=== PATIENT | male | born 1940 | race Caucasian/White ===

== ENCOUNTER 2017-04-13 16:43 | Inpatient (IN) | payer MEDICARE, OTHER ==
[~2017-04-13] VITALS: Ht 177.8 cm; Wt 77.1 kg
--- NOTE | 2017-04-13 17:00 | NUR ---
ms rn received a mew direct admission form [facility], dx etoh withdrawal, 76 year old male,awake,alert,oriented x3-4,not in any form of distress, respirations even and unlabored, no distress noted,denies pain at this time,all needs attended.
[2017-04-13] MEDS ORDERED: ONDANSETRON HCL/PF 4 MG/2 ML VIAL IVP PRN (17:30)
[2017-04-13] MEDS ORDERED: ACETAMINOPHEN 325 MG TABLET PO PRN (17:30)
[2017-04-13] MEDS ORDERED: CLONIDINE HCL 0.1 MG TABLET PO PRN (17:30)
[2017-04-13] MEDS ORDERED: Z GUARD REMEDY 2 OZ OINT TP PRN (17:30)
[2017-04-13] MEDS ORDERED: MAGNESIUM HYDROXIDE 30 ML UDC PO PRN (17:30)
[2017-04-13] MEDS ORDERED: ZOLPIDEM TARTRATE 5 MG TABLET PO PRN (17:30)
[2017-04-13] MEDS ORDERED: MAG HYDROX/AL HYDROX/SIMETH 30 ML UDC PO PRN (17:30)
--- NOTE | 2017-04-13 18:00 | NUR ---
ms rn due meds given,tolerated well.
[2017-04-13] MEDS: IV NS 0.9% 1,000 ML IV PRN (18:29)
[2017-04-13] MEDS: CHLORDIAZEPOXIDE HCL 5 MG CAPSULE PO SCH (18:29)
[2017-04-13 18:52] LABS: ALANINE AMINOTRANSFERASE 24 U/L (12-78); ALBUMIN 2.9 g/dL (3.4-5.0); ALKALINE PHOSPHATASE 99 U/L (46-116); ASPARTATE AMINOTRANSFERASE 22 U/L (15-37); BILIRUBIN,TOTAL 0.6 mg/dL (0.2-1.0); CALCIUM, SERUM 9.2 mg/dL (8.5-10.1); CARBON DIOXIDE 28 mmol/L (21-32); CHLORIDE 99 mmol/L (98-107); GLUCOSE 172 mg/dL (74-106); MAGNESIUM 1.8 mg/dL (1.8-2.4); PHOSPHORUS 3.6 mg/dL (2.5-4.9); POTASSIUM 4.3 mmol/L (3.5-5.1); SODIUM SERUM 135 mmol/L (136-145); TOTAL PROTEIN, SERUM 7.1 g/dL (6.4-8.2); UREA NITROGEN, BLOOD 27 mg/dL (7-18)
--- NOTE | 2017-04-13 19:08 | NUR ---
ms rn on bed no distress noted,all needs attended.
--- NOTE | 2017-04-13 19:20 | NUR ---
MS/RN NOTES RECEIVED PT. LYING IN BED. AWAKE, ALERT AND ORIENTED X3. BREATHING EVEN AND UNLABORED ON ROOM AIR. NO SOB, RESPIRATORY DISTRESS OR COMPLAINTS OF PAIN NOTED AT THIS TIME. PT. WITH RIGHT FOREARM PERIPHERAL IV PRESENT, PATENT AND INTACT ADMINISTERING TO PT. NS @ 75 ML/HR. BED LOCKED AND IN LOWEST POSITION, SIDE RAILS UP X3, CALL LIGHT WITHIN REACH, WILL CONTINUE TO MONITOR.
[2017-04-13 19:56] VITALS: BP 156/94
[2017-04-13 20:00] VITALS: BP 141/83
--- NOTE | 2017-04-14 06:21 | NUR ---
MS/RN NOTES PT. IS LYING IN BED RESTING. BREATHING EVEN AND UNLABORED ON ROOM AIR. NO SOB, RESPIRATORY DISTRESS OR COMPLAINTS OF PAIN NOTED AT THIS TIME AND THROUGHOUT SHIFT. PT. WITH RIGHT FOREARM PERIPHERAL IV PRESENT, PATENT AND INTACT ADMINISTERING TO PT. NS @ 75 ML/HR. ALL PT. NEEDS MET. PT. ENCOURAGED AND ASSISTED TO TURN AND REPOSITION Q2H AND NEEDED. BED LOCKED AND IN LOWEST POSITION, SIDE RAILS UP X3, CALL LIGHT WITHIN REACH, WILL ENDORSE TO DAYSHIFT NURSE FOR CONTINUITY OF CARE.
[2017-04-14 07:35] LABS: BASOPHILS % (AUTO) 0.3 % (0.0-2.0); EOSINOPHILS # (AUTO) 0.1 /CMM (0.0-0.7); EOSINOPHILS % (AUTO) 1.4 % (0.0-6.0); HEMATOCRIT 34 % (39-51); HEMOGLOBIN 11.9 g/dL (13.5-17.5); LYMPHOCYTES # (AUTO) 1.8 /CMM (0.8-4.8); LYMPHOCYTES % (AUTO) 23.6 % (20.0-44.0); MEAN CORPUSCULAR HEMOGLOBIN 32 PG (26.0-33.0); MEAN CORPUSCULAR HGB CONC 35 g/dl (31.0-36.0); MEAN CORPUSCULAR VOLUME 92 fL (80-96); MONOCYTES % (AUTO) 12.7 % (2.0-12.0); NEUTROPHILS # (AUTO) 4.7 /CMM (1.8-8.9); PLATELET COUNT (AUTO) 229 /CMM (150-450); RDW COEFFICIENT OF VARIATION 15.9 (11.5-15.0); RED BLOOD CELL COUNT(AUTO) 3.71 MIL/uL (4.5-6.0); WHITE BLOOD COUNT (AUTO) 7.6 K/uL (4.3-11.0)
[2017-04-14 07:48] LABS: CALCIUM, SERUM 8.8 mg/dL (8.5-10.1); CARBON DIOXIDE 26 mmol/L (21-32); CHLORIDE 101 mmol/L (98-107); CREATININE 0.8 mg/dL (0.6-1.3); GLUCOSE 104 mg/dL (74-106); MAGNESIUM 1.8 mg/dL (1.8-2.4); PHOSPHORUS 3.3 mg/dL (2.5-4.9); SODIUM SERUM 135 mmol/L (136-145); UREA NITROGEN, BLOOD 24 mg/dL (7-18)
--- NOTE | 2017-04-14 07:50 | NUR ---
RN OPENING NOTES PT IN BED RESTING. A/OX2, NO S/S OF RESP DISTRESS OR SOB. NO C/O PAIN AT THIS TIME. IV ACCESS LOCATED ON RIGHT FA 20 G INFUSING NS AT 75 ML /HR. PT SCHEDULED TO HAVE WOUND CONSULT FOR LEFT HAND WOUND AND PT EVAL TODAY. SAFETY MEASURES IN PLACE, CALL LIGHT WITHIN REACH. WILL CONTINUE TO MONITOR.
[2017-04-14 08:00] VITALS: BP 148/96
[2017-04-14] MEDS: PANTOPRAZOLE 40 MG TABLET.DR PO SCH (08:34)
[2017-04-14] MEDS: FOLIC ACID 1 MG TABLET PO SCH (08:34)
[2017-04-14] MEDS: MULTIVITAMINS,THERAGRAN 1 UDTAB TABLET PO SCH (08:34)
[2017-04-14] MEDS: THIAMINE HCL 100 MG TABLET PO SCH (08:34)
[2017-04-14] MEDS: CHLORDIAZEPOXIDE HCL 5 MG CAPSULE PO SCH ×3 (08:34→16:31)
[2017-04-14 09:00] VITALS: BP 148/94
[2017-04-14] MEDS ORDERED: CEFAZOLIN 1 GM VIAL IV SCH (10:30)
[2017-04-14] MEDS: LISINOPRIL (10MG) 10 MG TABLET PO SCH (11:59)
[2017-04-14] MEDS: CEFAZOLIN 1 GM in IV NS 0.9% 50 ML IV SCH ×2 (12:00→20:50)
--- NOTE | 2017-04-14 12:00 | NUR ---
RN NOTES AM CEFAZOLIN NOT GIVEN. NOT VERIFIED BY PHARMACY AND THEN DCED. WILL F/U WITH PHARMACY.
--- NOTE | 2017-04-14 14:18 | NUR ---
Social service consult requested by Dr. Ballesteros for homelessness. Pt. is a 76 year old male who was admitted to [facility] for ETOH withdrawal. SW met with pt. bedside. Pt. is alert and oriented x 4. Pt. was sitting in his chair eating pudding. Pt. was cooperative and pleasant with SW during the assessment. Pt. states he has been homeless for the past six months. Pt. has been living with a friend and states he will go back there once he is discharged. Pt's friend is Bee, however pt. couldn't provide the telephone number of address but states he knows how to get to her house. 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 Pt. stated he was sober for 6 months after her completed the alcohol treatment program at [facility]. Pt. relapsed due to having relationship issues with a female friend. Pt. 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 Pt. denies suicidal/ homicidal ideations and visual/auditory hallucinations at this time. Pt. has no history of psychiatric hospitalizations. Pt. states he gets depressed every now and then when he begins to reflect on his life and according to him, " the mess I have made with it". Pt. states he will go back to his friend's place upon discharge and will require bus tokens. SW to offer pt. homeless resources upon discharge. No other social service needs are required at this time. SW is available, if needed.
[2017-04-14 16:00] VITALS: BP 114/80
[2017-04-14] MEDS: HYDROCODONE/APAP 5/325MG 1 EACH TABLET PO PRN (16:33)
--- NOTE | 2017-04-14 18:27 | NUR ---
RN CLOSING NOTE PT IN BED RESTING. A/OX3. NO S/S OF RESP DISTRESS OR SOB. NO C/O PAIN AT THIS TIME. PT TO HAVE WOUND DEBRIDEMENT OF LEFT HAND PERFORMED ON 04/15/17. CONSENT FORM SIGNED AND PLACED IN CHART. PT EVAL COMPLETED TODAY, PT CLEARED TO AMBULATE WITH FWW. ALL PT NEEDS ANTICIPATED AND MET, SAFETY MEASURES IN PLACE, CALL LIGHT WITHIN REACH. WILL ENDORSE TO TIRE TRIMMER HAND FOR MASON.
--- NOTE | 2017-04-14 19:15 | NUR ---
MS/RN NOTES RECEIVED PT. SITTING UP IN BED. AWAKE, ALERT AND ORIENTED X3. BREATHING EVEN AND UNLABORED ON ROOM AIR. NO SOB, RESPIRATORY DISTRESS OR COMPLAINTS OF PAIN NOTED AT THIS TIME. PT. WITH RIGHT FOREARM PERIPHERAL IV PRESENT, PATENT AND INTACT ADMINISTERING TO PT. NS @ 75 ML/HR. BED LOCKED AND IN LOWEST POSITION, SIDE RAILS UP X3, CALL LIGHT WITHIN REACH, WILL CONTINUE TO MONITOR.
[2017-04-14] MEDS ORDERED: NICOTINE PATCH (14MG) 14 MG PATCH.TD24 TD PRN (19:30)
[2017-04-14 20:00] VITALS: BP 117/68
[2017-04-15] MEDS: CEFAZOLIN 1 GM in IV NS 0.9% 50 ML IV SCH ×3 (05:42→19:56)
--- NOTE | 2017-04-15 06:10 | NUR ---
MS/RN NOTES PT. IS LYING IN BED RESTING. BREATHING EVEN AND UNLABORED ON ROOM AIR. NO SOB, RESPIRATORY DISTRESS OR COMPLAINTS OF PAIN NOTED AT THIS TIME. PT. WITH RIGHT FOREARM PERIPHERAL IV PRESENT, PATENT AND INTACT ADMINISTERING TO PT. NS @ 75 ML/HR. ALL PT. NEEDS MET. BED LOCKED AND IN LOWEST POSITION, SIDE RAILS UP X3, CALL LIGHT WITHIN REACH, WILL ENDORSE TO DAYSHIFT NURSE FOR CONTINUITY OF CARE.
[2017-04-15] MEDS: IV NS 0.9% 1,000 ML IV PRN (06:22)
--- NOTE | 2017-04-15 06:55 | NUR ---
WOUND CARE CONSULT WOUND CARE RECEIVED CONSULT FOR MULTIPLE ABRASIONS. WOUND CARE WILL DEFER CONSULT AND ALL TREATMENT PLANS TO SURGICAL TEAM WHO ARE CURRENTLY FOLLOWING. PATIENT WITH CURRENT PATTIE AT 16. ALL PRESSURE ULCER PREVENTION MEASURES NOTED TO BE IN PLACE AT THIS TIME.
--- NOTE | 2017-04-15 07:30 | NUR ---
RN OPENING NOTES RECEIVED PT. A/OX3. NO S/S OF RESP DISTRESS OR SOB. NO C/O PAIN AT THIS TIME. PT IS TO HAVE DEBRIDEMENT OF LEFT HAND WOUND. CONSENTS SIGNED AND IN CHART. AWAITING MD FOR PROCEDURE. IV ACCESS LOCATED ON RIGHT FA 20G INFUSING NS AT 75 ML/HR. SAFETY MEASURES IN PLACE, CALL LIGHT WITHIN REACH. WILL CONTINUE TO MONITOR.
[2017-04-15 08:00] VITALS: BP 130/99
[2017-04-15] MEDS: CHLORDIAZEPOXIDE HCL 5 MG CAPSULE PO SCH ×3 (08:13→16:50)
[2017-04-15] MEDS: PANTOPRAZOLE 40 MG TABLET.DR PO SCH (08:13)
[2017-04-15] MEDS: FOLIC ACID 1 MG TABLET PO SCH (08:14)
[2017-04-15] MEDS: THIAMINE HCL 100 MG TABLET PO SCH (08:14)
[2017-04-15] MEDS: LISINOPRIL (10MG) 10 MG TABLET PO SCH (08:14)
[2017-04-15] MEDS: MULTIVITAMINS,THERAGRAN 1 UDTAB TABLET PO SCH (08:16)
[2017-04-15 09:00] VITALS: BP 138/94
[2017-04-15] MEDS: HYDROCODONE/APAP 5/325MG 1 EACH TABLET PO PRN ×2 (10:59→17:35)
--- NOTE | 2017-04-15 14:00 | NUR ---
RN NOTES PHARMACY CONTACTED FOR TRIPLE ABX FOR LEFT HAND APPLICATION. AWAITING DELIVERY OF MED FOR ADMIN.
[2017-04-15] MEDS: LORAZEPAM INJ 2 MG/ML VIAL IV PRN ×2 (14:16→20:48)
--- NOTE | 2017-04-15 15:29 | NUR ---
RN NOTES DEBRIDEMENT OF LEFT HAND WOUNDS PERFORMED BY KAMILLA SIMPSON. NEW ORDER FOR TRIPLE ABX CREAM PLACED. CREAM TO BE USED TOPICAL FOLLOWING CLEANSE WITH NS. WILL CONTINUE TO MONITOR.
[2017-04-15 16:00] VITALS: BP 124/75
--- NOTE | 2017-04-15 17:00 | NUR ---
RN NOTES TRIPLE ABX ADMIN DELAYED DUE TO UNAVAILABILITY IN [place]ET[place]/OMN[place]. WILL F/U WITH PHARMACY.
[2017-04-15] MEDS: NEOMY SULF/BACITRAC ZN/POLY 15 GM TUBE TP SCH (17:35)
--- NOTE | 2017-04-15 18:30 | NUR ---
RN CLOSING NOTE PT IN BED RESTING. NO S/S OF RESP DISTRESS OR SOB. NO C/O PAIN AT THIS TIME. PT REMOVED IV ACCESS BY ACCIDENT. REFUSES INSERTION OF ADDITIONAL IV ACCESS. [facility]. ALL PT NEEDS ANTICIPATED AND MET. SAFETY MEASURES IN PLACE, CALL LIGHT IN REACH, WILL ENDORSE TO BEER MAKER FOR MASON.
[2017-04-15 20:00] VITALS: BP 124/74
--- NOTE | 2017-04-15 20:00 | NUR ---
ms/rn opening notes PATIENT IN BED, AWAKE, ALERT X2 ABLE TO VERBALIZE NEEDS, SKIN WARM TO TOUCH, RESPIRATIONS EVEN AND UNLABORES, IV ON LEFT HAND FLUSH WITH NO S/S OF INFILTRATION, BED IN LOCK POSITION. WILL CONTINUE TO MONITOR.
--- NOTE | 2017-04-16 03:42 | NUR ---
ms/rn notes patient asleep, will monitor for any changes
[2017-04-16] MEDS: CEFAZOLIN 1 GM in IV NS 0.9% 50 ML IV SCH ×3 (04:10→20:26)
[2017-04-16] MEDS: LORAZEPAM INJ 2 MG/ML VIAL IV PRN ×2 (05:24→13:30)
--- NOTE | 2017-04-16 06:46 | NUR ---
ms/rn notes PATIENT IN BED, ABLE TO SLEEP DURING THE NIGHT, COOPERATIVE TO CARE, PARTICIPATED IN BED BATH, PROVIDE FLUID, IV ANTIBIOTIC ADMINISTERED, NO S/S OF ADVERSE REACTION, WOUND KEPT INTACT AND DRY. WILL ENDORSE TO AM RN FOR MASON.
[2017-04-16] MEDS: LISINOPRIL (10MG) 10 MG TABLET PO SCH (08:10)
[2017-04-16] MEDS: FOLIC ACID 1 MG TABLET PO SCH (08:10)
[2017-04-16] MEDS: CHLORDIAZEPOXIDE HCL 5 MG CAPSULE PO SCH ×3 (08:10→16:49)
[2017-04-16] MEDS: THIAMINE HCL 100 MG TABLET PO SCH (08:10)
[2017-04-16] MEDS: PANTOPRAZOLE 40 MG TABLET.DR PO SCH (08:10)
[2017-04-16] MEDS: MULTIVITAMINS,THERAGRAN 1 UDTAB TABLET PO SCH (08:10)
--- NOTE | 2017-04-16 08:15 | NUR ---
MS RN NOTES PATIENT IS SITTING UP IN BED, EATING BREAKFAST. DENIES ANY PAIN, NO SOB. APPEARS ANXIOUS. LEFT HAND DRESSING INTACT, NO BLEEDING NOTED. MAINTAIN FALL PRECAUTION. WILL CONT TO MONITOR.
[2017-04-16] MEDS: NEOMY SULF/BACITRAC ZN/POLY 15 GM TUBE TP SCH (10:33)
[2017-04-16 16:00] VITALS: BP 142/88
--- NOTE | 2017-04-16 18:23 | NUR ---
MS RN CLOSING NOTES PATIENT IN BED, A/O X3, FORGETFUL. REORIENT FREQUENTLY. AMBULATES WITH PT TODAY, TOLERATING WELL. EPISODE OF ANXIETY DURING THE SHIFT, MEDICATED WITH ATIVAN 1MG IV PRN, EFFECTIVE. WOUND DRESSING CHANGED, DENIES PAIN. MAINTAIN SAFETY PRECAUTION. PATIENT TO BE DISCHARGED, CM FOR PLACEMENT. WILL ENDORSE TO ONCOMING SHIFT RN.
[2017-04-16 20:00] VITALS: BP_SYST 101; BP_SYST 141; BP_DIAS 54; BP_DIAS 88
--- NOTE | 2017-04-16 20:00 | NUR ---
MS/RN OPENING NOTES PATIENT IN BED, RESTING COMFORTABLY, SKIN WARM TO TOUCH, IV ANTIBIOTIC INFUSING, NO S/S OF DISTRESS, CALM AND COMFORTABLE WILL MONITOR FOR ANY CHANGES, CALL LIGHTS WITHIN REACH, BED IN LOCK POSITION. RECEIVED REPORT FROM AM RN FOR MASON. WILL MONITOR AND KEEP COMFORTABLE.
[2017-04-16] MEDS: IV NS 0.9% 1,000 ML IV PRN (21:43)
[2017-04-17] MEDS: LORAZEPAM INJ 2 MG/ML VIAL IV PRN ×2 (01:15→15:57)
[2017-04-17] MEDS: CEFAZOLIN 1 GM in IV NS 0.9% 50 ML IV SCH ×3 (04:38→21:24)
--- NOTE | 2017-04-17 07:51 | NUR ---
312-2 PATIENT RESTING COMFORTABLY IN BED, RESPIRATIONS EVEN AND UNLABORED, ASSISTED WITH NEEDS, OFFERED SNACKS, IV ANTIBIOTIC ADMINISTERED WITH NO S/S OF ADVERESE REACTION. WILL ENDORSE TO AM RN FOR MASON. CALL LIGHTS WITHIN REACH, BED IN LOCK POSITION, INSTRUCTED PATIENT TO CALL FOR ASSISTANCE FOR SAFETY.
[2017-04-17 08:00] VITALS: BP 161/90
[2017-04-17 08:19] VITALS: BP 125/81
[2017-04-17] MEDS: PANTOPRAZOLE 40 MG TABLET.DR PO SCH (08:20)
[2017-04-17] MEDS: CHLORDIAZEPOXIDE HCL 5 MG CAPSULE PO SCH ×3 (08:20→17:21)
[2017-04-17] MEDS: THIAMINE HCL 100 MG TABLET PO SCH (08:20)
[2017-04-17] MEDS: MULTIVITAMINS,THERAGRAN 1 UDTAB TABLET PO SCH (08:20)
[2017-04-17] MEDS: LISINOPRIL (10MG) 10 MG TABLET PO SCH (08:20)
[2017-04-17] MEDS: FOLIC ACID 1 MG TABLET PO SCH (08:20)
--- NOTE | 2017-04-17 08:23 | NUR ---
MS RN NOTES PATIENT IS SITTING UP IN BED, EATING BREAKFAST, GOOD APPETITE. DENIES ANY PAIN, LEFT HAND DRESSING IN PLACE. NO BLEEDING NOTED. MAINTAIN FALL PRECAUTION, CALL LIGHT WITHIN REACH. RECHECKED BP 125/81 P91. WILL CONT TO MONITOR.
[2017-04-17] MEDS: NEOMY SULF/BACITRAC ZN/POLY 15 GM TUBE TP SCH (10:39)
[2017-04-17 16:00] VITALS: BP 157/90
--- NOTE | 2017-04-17 18:21 | NUR ---
MS RN CLOSING NOTES PATIENT IN BED, A/O X3, FORGETFUL. REORIENT FREQUENTLY. EPISODE OF ANXIETY DURING THE SHIFT, MEDICATED WITH ATIVAN 1MG IV PRN, EFFECTIVE. WOUND DRESSING CHANGED, DENIES PAIN. MAINTAIN SAFETY PRECAUTION, CALL LIGHT WITHIN REACH. PATIENT TO BE DISCHARGED TO [facility], FOR PLACEMENT. WILL ENDORSE TO ONCOMING SHIFT RN.
--- NOTE | 2017-04-17 19:30 | NUR ---
RN NOTES RECEIVED PATIENT IN BED AWAKE. AO X 2-3, WITH PERIODS OF FORGETFULNESS. NO SIGN OF ACUTE DISTRESS NOTED. DENIES ANY PAIN AT THIS TIME. IV SITE PATENT, INTACT; FLUSHED. SAFETY REMINDERS GIVEN. ON LOW BED WITH BILATERAL UPPER SIDE RAILS UP. CALL ARCEO WITHIN EASY REACH.
[2017-04-17 20:00] VITALS: BP 156/97
[2017-04-18] MEDS: CEFAZOLIN 1 GM in IV NS 0.9% 50 ML IV SCH ×2 (05:17→14:06)
--- NOTE | 2017-04-18 06:09 | NUR ---
RN NOTES PATIENT ASLEEP, EASILY AROUSABLE. RESPIRATIONS EVEN. NO SIGNS OF PAIN NOTED. DUE MEDS GIVEN WITH NO ASE NOTED. NEEDS ATTENDED. SAFETY PRECAUTIONS AND COMFORT MEASURES IN PLACE. WILL GIVE REPORT TO DAY SHIFT FOR CONTINUITY OF CARE.
--- NOTE | 2017-04-18 07:30 | NUR ---
MS/RN OPENING NOTE PATIENT IN BED AWAKE. ALERT AND ORIENTED X3. DENIES SOB. RESPIRATION REGULAR AND UNLABORED. DENIES PAIN AT THIS TIME. IN NO APPARENT DISTRESS. BED LOW AND LOCKED. SIDE RAILS UP X2. CALL LIGHT WITHIN REACH. WILL CONTINUE TO MONITOR.
[2017-04-18 08:00] VITALS: BP 132/75
[2017-04-18] MEDS: PANTOPRAZOLE 40 MG TABLET.DR PO SCH (08:33)
[2017-04-18] MEDS: CHLORDIAZEPOXIDE HCL 5 MG CAPSULE PO SCH ×2 (08:33→14:06)
[2017-04-18] MEDS: FOLIC ACID 1 MG TABLET PO SCH (08:33)
[2017-04-18] MEDS: MULTIVITAMINS,THERAGRAN 1 UDTAB TABLET PO SCH (08:33)
[2017-04-18] MEDS: THIAMINE HCL 100 MG TABLET PO SCH (08:33)
[2017-04-18] MEDS: LISINOPRIL (10MG) 10 MG TABLET PO SCH (08:34)
[2017-04-18] MEDS: NEOMY SULF/BACITRAC ZN/POLY 15 GM TUBE TP SCH (08:34)
[2017-04-18] MEDS: LORAZEPAM INJ 2 MG/ML VIAL IV PRN (11:44)
[2017-04-18 16:00] VITALS: BP 148/80
--- NOTE | 2017-04-18 17:00 | NUR ---
MS/RN CLOSING NOTE PATIENT ALERT AND ORIENTED X3. DENIES SOB, PAIN AT THIS TIME. RESPIRATION REGULAR AND UNLABORED. IN NO APPARENT DISTRESS. DISCHARGE INSTRUCTIONS AND THE PATIENT VERBALIZED UNDERSTANDING. PATIENT PICKED UP DONE BY THE AMBULANCE. PATIENT LEFT THE HOSPITAL IN STABLE CONDITION.
== END 2017-04-18 17:04 | DRG 987 ==
LOC: MED 16:43
PROVIDERS: ADMIT Internal Medicine; ATTEND Internal Medicine
PROC: 0JBK0ZZ Excision of Left Hand Subcutaneous Tissue and Fascia, Open Approach (ICD-10-PCS; principal; 2017-04-14)
PROC: 0JBK0ZZ Excision of Left Hand Subcutaneous Tissue and Fascia, Open Approach (ICD-10-PCS; 2017-04-14)
DX: F10.239 Alcohol dependence with withdrawal, unspecified (principal); E43 Unspecified severe protein-calorie malnutrition; D63.8 Anemia in other chronic diseases classified elsewhere; E86.1 Hypovolemia; J44.9 Chronic obstructive pulmonary disease, unspecified; E87.1 Hypo-osmolality and hyponatremia; S60.522A Blister (nonthermal) of left hand, initial encounter; L02.512 Cutaneous abscess of left hand; L03.114 Cellulitis of left upper limb; F17.210 Nicotine dependence, cigarettes, uncomplicated; I10 Essential (primary) hypertension; Z59.0 Homelessness; M62.50 Muscle wasting and atrophy, not elsewhere classified, unspecified site; R53.1 Weakness; T51.0X1A Toxic effect of ethanol, accidental (unintentional), initial encounter; Y90.9 Presence of alcohol in blood, level not specified; L30.4 Erythema intertrigo; L98.8 Other specified disorders of the skin and subcutaneous tissue; X58.XXXA Exposure to other specified factors, initial encounter; Y93.9 Activity, unspecified; Y92.9 Unspecified place or not applicable; L08.9 Local infection of the skin and subcutaneous tissue, unspecified; Z68.24 Body mass index [BMI] 24.0-24.9, adult; Z71.6 Tobacco abuse counseling
CPT/HCPCS: 36415; 80048-TC; 80053-TC; 83735-TC; 84100-TC; 85025-TC; 87081-TC; 97110-TC; 97116-TC; 97530-TC; A4216; A6402; J0690; J2060; J7030; Z7610

== ENCOUNTER 2019-09-22 21:59 | Emergency (ER) | payer MEDICARE, OTHER ==
[~2019-09-22] VITALS: Ht 170.2 cm; Wt 83.9 kg
[2019-09-23 06:04] VITALS: BP 127/71
--- NOTE | 2019-09-23 06:04 | NUR ---
Patient discharged to home in stable condition. Written and verbal after care instructions given. Patient verbalizes understanding of instruction. Pt ambulated using his walker. Provided with food and socks.
== END 2019-09-23 06:05 | disposition home or self-care (01) ==
LOC: ER 21:59
DX: F10.129 Alcohol abuse with intoxication, unspecified (principal); R41.82 Altered mental status, unspecified; I10 Essential (primary) hypertension; F17.200 Nicotine dependence, unspecified, uncomplicated; Z59.0 Homelessness; Y90.9 Presence of alcohol in blood, level not specified
CPT/HCPCS: 70450-TC

== ENCOUNTER 2019-10-04 09:19 | Inpatient (IN) | payer MEDICARE ==
[~2019-10-04] VITALS: Ht 172.7 cm; Wt 83.5 kg
--- NOTE | 2019-10-04 09:19 | NUR ---
PT [address]IB[address] C/O ETOH. PT IS AAOX1, NOT IN RESPIRATORY DISTRESS, HOOKED TO GENERAL ACTIVITIES THERAPIST, KEPT RESTED AND COMFORTABLE. WILL CONTINUE TO MONITOR.
--- NOTE | 2019-10-04 09:26 | NUR ---
SEEN AND EXAMINED BY .
--- NOTE | 2019-10-04 09:30 | NUR ---
ER PHLEB AT BEDSIDE FOR BLOOD DRAW.
[2019-10-04 09:43] LABS: BASOPHILS # (AUTO) 0.1 /CMM (0.0-0.2); BASOPHILS % (AUTO) 0.9 % (0.0-2.0); EOSINOPHILS % (AUTO) 2.5 % (0.0-6.0); HEMATOCRIT 42 % (39-51); HEMOGLOBIN 13.8 g/dL (13.5-17.5); LYMPHOCYTES # (AUTO) 5.6 /CMM (0.8-4.8); MEAN CORPUSCULAR HGB CONC 33 g/dl (31.0-36.0); MEAN CORPUSCULAR VOLUME 100 fL (80-96); MONOCYTES % (AUTO) 9.3 % (2.0-12.0); NEUTROPHILS % (AUTO) 36.3 % (43.0-81.0); PLATELET COUNT (AUTO) 209 /CMM (150-450); RED BLOOD CELL COUNT(AUTO) 4.18 MIL/uL (4.5-6.0)
--- NOTE | 2019-10-04 09:55 | NUR ---
PT IS WHEELED TO CT SCAN VIA [facility].
[2019-10-04 10:01] LABS: CALCIUM, SERUM 8.6 mg/dL (8.5-10.1); CARBON DIOXIDE 25 mmol/L (21-32); CHLORIDE 99 mmol/L (98-107); GLUCOSE 112 mg/dL (74-106); POTASSIUM 3.6 mmol/L (3.5-5.1); SODIUM SERUM 135 mmol/L (136-145); UREA NITROGEN, BLOOD 22 mg/dL (7-18)
[2019-10-04 10:04] LABS: ALANINE AMINOTRANSFERASE 28 U/L (12-78); ALBUMIN 3.4 g/dL (3.4-5.0); ALKALINE PHOSPHATASE 75 U/L (46-116); ASPARTATE AMINOTRANSFERASE 36 U/L (15-37); BILIRUBIN,DIRECT 0.2 mg/dL (0.0-0.2); BILIRUBIN,TOTAL 0.4 mg/dL (0.2-1.0); TOTAL PROTEIN, SERUM 7.3 g/dL (6.4-8.2)
[2019-10-04 10:16] LABS: ACETAMINOPHEN < 2 ug/ml (10-30); ALCOHOL, BLOOD 517 mg/dL (0-0); SALICYLATE 1.2 mg/dL (2.8-20.0)
[2019-10-04 10:55] LABS: EOSINOPHILS % (MANUAL) 4 % (0-4); LYMPHOCYTES % (MANUAL) 49 % (16-48); MONOCYTES % (MANUAL) 4 % (0-11.0); NEUTROPHILS % (MANUAL) 43 (42-76)
--- NOTE | 2019-10-04 12:22 | NUR ---
ASSESSED PT ON BED ASLEEP, NOT IN RESPIRATORY DISTRESS, V/S STABLE, KEPT RESTED AND COMFORTABLE. WILL CONTINUE TO MONITOR.
--- NOTE | 2019-10-04 14:58 | NUR ---
Reinier ngo in [facility] - 10/04/19 at 1459 by FRANSISCA PT IS AWAKE AND ALERT. NOT IN RESPIRATORY DISTRESS, V/S STABLE.
--- NOTE | 2019-10-04 18:27 | NUR ---
PT IS AWAKE. VERBALIZED THAT HE IS FEELING BETTER. PT AMBULATED TO BATHROOM AND PROVIDED WITH A MEAL.
--- NOTE | 2019-10-04 18:40 | NUR ---
ER PHLEB AT BEDSIDE FOR REPEAT BLOOD ALCOHOL.
--- NOTE | 2019-10-04 19:45 | NUR ---
at bedside talking to pt. pt complained of left chsy pain non radiating 6/10 aching in sensation.
--- NOTE | 2019-10-04 19:54 | NUR ---
CALLED LAB TO DRAW TROP.
--- NOTE | 2019-10-04 19:56 | NUR ---
emt at bedside for ekg
--- NOTE | 2019-10-04 20:04 | NUR ---
CALLED FOR COVID SWAB
--- NOTE | 2019-10-04 20:17 | NUR ---
FOLLOWED UP WITH LAB REGARDING BLOOD DRAW
--- NOTE | 2019-10-04 20:28 | NUR ---
COVID SWAB DONE AND SENT TO LAB
[2019-10-04] MEDS ORDERED: LORA-259 PO (20:55)
[2019-10-04] MEDS ORDERED: NITROGLYCERIN 0.4 MG/TAB BOTTLE SL ONE (21:00)
[2019-10-04] MEDS ORDERED: ASPIRIN 81 MG TAB.CHEW PO ONE (21:00)
[2019-10-04] MEDS ORDERED: ONDANSETRON HCL/PF 4 MG/2 ML VIAL IV ONE (21:30)
--- NOTE | 2019-10-04 21:45 | NUR ---
LAB CALLED REGARDING NEGATIVE COVID RESULT.
--- NOTE | 2019-10-04 22:13 | NUR ---
2nd dose of nitroglycerin 0.4mg SL tab given. pt still have the same pain. 5/10 aching. bp: 114/71
--- NOTE | 2019-10-04 22:31 | NUR ---
TELE 316-2
[2019-10-04] MEDS ORDERED: MAGNESIUM HYDROXIDE 30 ML UDC PO PRN (23:00)
[2019-10-04] MEDS ORDERED: ACETAMINOPHEN 325 MG TABLET PO PRN (23:00)
[2019-10-04] MEDS ORDERED: Z GUARD REMEDY 2 OZ OINT TP PRN (23:00)
[2019-10-04] MEDS ORDERED: CLONIDINE HCL 0.1 MG TABLET PO PRN (23:00)
[2019-10-04] MEDS ORDERED: NITROGLYCERIN 0.4 MG/TAB BOTTLE SL PRN (23:00)
[2019-10-04] MEDS ORDERED: ONDANSETRON HCL/PF 4 MG/2 ML VIAL IVP PRN (23:00)
[2019-10-04] MEDS ORDERED: MAG HYDROX/AL HYDROX/SIMETH 30 ML UDC PO PRN (23:00)
[2019-10-04] MEDS ORDERED: HYDROCODONE/APAP 5/325MG TABLET PO PRN (23:00)
--- NOTE | 2019-10-04 23:14 | NUR ---
REPORT GIVEN TO MINAL SUTHERLAND FOR MASON
[2019-10-04 23:25] VITALS: BP 103/73
--- NOTE | 2019-10-04 23:32 | NUR ---
PT TRANSPORTED TO UNIT ON [facility] WITH EMT AND RN AT BEDSIDE W/ ACLS PROTOCOL. NAD NOTED DURING TRANSPORT. PT AMBULATED FROM GURNEY TO BED W/ MIN ASSIST.
--- NOTE | 2019-10-04 23:35 | NUR ---
MS/REGISTERED PHARMACY TECHNICIAN NOTES: PATIENT REPORT GIVEN BY MINAL SOARES. ARRIVED TO THE UNIT AT 2325. A/OX4, VERBALLY RESPONSIVE AND ABLE TO MAKE NEEDS KNOWN. NO SOB NOTED. BREATHING EVEN AND UNLABORED. ON 2L OXYGEN. SATURATING AT 95%. ON TELE WITH NSR 90S. NO S/S OF DISTRESS. COMPLAINS OF 5/10 ACHING PAIN ON THE CHEST. AMBULATORY WITH ASSISTANCE. SKIN ASSESSMENT DONE, ABRASIONS AND HEALING SCABS ON BILATERAL LEGS, FEET, AND HIPS. WOUND CONSULT ORDERED. PICTURE TAKEN AND DOCUMENTED IN THE CHART. IV ON THE RIGHT WRIST #22G IVF RUNNING AT 75MLS/HR. PT ORIENTED TO UNIT AND STAFF. SAFETY MEASURES INITIATED. BED IN LOW, LOCKED POSITION. SR UP X2. CALL LIGHT WITHIN REACH. WILL CONT. TO MONITOR ACCORDINGLY.
[2019-10-04 23:40] VITALS: BP 103/73
[2019-10-05] MEDS: MULTIVITAMINS,THERAGRAN 1 UDTAB TABLET PO SCH ×2 (00:14→08:26)
[2019-10-05] MEDS: FOLIC ACID 1 MG TABLET PO SCH ×2 (00:14→08:26)
[2019-10-05] MEDS: THIAMINE HCL 100 MG TABLET PO SCH ×2 (00:14→08:26)
[2019-10-05] MEDS: ENOXAPARIN SODIUM 40 MG/0.4 ML DISP.SYRIN SQ SCH ×2 (00:17→21:59)
[2019-10-05] MEDS: IV 1/2NS 1000 ML 1,000 ML IV PRN ×2 (00:18→21:57)
[2019-10-05 00:50] VITALS: BP 128/79
[2019-10-05 00:57] VITALS: BP 128/79
[2019-10-05] MEDS: LORAZEPAM INJ 2 MG/ML VIAL IV PRN ×4 (00:57→23:18)
[2019-10-05 02:52] LABS: BASOPHILS # (AUTO) 0.1 /CMM (0.0-0.2); EOSINOPHILS % (AUTO) 2.6 % (0.0-6.0); HEMATOCRIT 38 % (39-51); HEMOGLOBIN 12.9 g/dL (13.5-17.5); LYMPHOCYTES # (AUTO) 2.2 /CMM (0.8-4.8); LYMPHOCYTES % (AUTO) 28.3 % (20.0-44.0); MEAN CORPUSCULAR HGB CONC 34 g/dl (31.0-36.0); MEAN CORPUSCULAR VOLUME 98 fL (80-96); MONOCYTES # (AUTO) 0.8 /CMM (0.1-1.30); MONOCYTES % (AUTO) 10.7 % (2.0-12.0); NEUTROPHILS # (AUTO) 4.4 /CMM (1.8-8.9); NEUTROPHILS % (AUTO) 57.4 % (43.0-81.0); PLATELET COUNT (AUTO) 191 /CMM (150-450); RED BLOOD CELL COUNT(AUTO) 3.92 MIL/uL (4.5-6.0); WHITE BLOOD COUNT (AUTO) 7.7 K/uL (4.3-11.0)
[2019-10-05 03:08] LABS: ALANINE AMINOTRANSFERASE 28 U/L (12-78); ALKALINE PHOSPHATASE 72 U/L (46-116); ASPARTATE AMINOTRANSFERASE 35 U/L (15-37); BILIRUBIN,TOTAL 0.3 mg/dL (0.2-1.0); CALCIUM, SERUM 8.6 mg/dL (8.5-10.1); CARBON DIOXIDE 28 mmol/L (21-32); CHLORIDE 101 mmol/L (98-107); CREATININE 1.1 mg/dL (0.6-1.3); GLUCOSE 122 mg/dL (74-106); MAGNESIUM 1.9 mg/dL (1.8-2.4); PHOSPHORUS 3.3 mg/dL (2.5-4.9); POTASSIUM 4.1 mmol/L (3.5-5.1); SODIUM SERUM 136 mmol/L (136-145); TOTAL PROTEIN, SERUM 6.4 g/dL (6.4-8.2); UREA NITROGEN, BLOOD 22 mg/dL (7-18)
[2019-10-05 03:19] LABS: CHOLESTEROL 135 mg/dL (<200); HDL CHOLESTEROL 61 mg/dL (40-60); LDL 57 mg/dL (0-99); THYROID STIMULATING HORMONE 1.074 uIU/mL (0.358-3.74); TRIGLYCERIDES 102 mg/dL (30-150)
[2019-10-05 04:00] VITALS: BP 115/78
--- NOTE | 2019-10-05 07:33 | NUR ---
GAS UTILITY WORKER NOTES PATIENT RECEIVED IN BED, AWAKE AND ORIENTED X 4. ON NASAL CANNULA, 2L WITH NO SIGNS OF RESPIRATORY DISTRESS AND NON-LABORED BREATHING, AND NO SOB NOTED AT THIS TIME. ON STRATEGIC BUSINESS DEVELOPMENT, SINUS RHYTHM, 90'S. PATIENT SKIN WARM AND DRY TO TOUCH, IV ACCESS INTACT AND PATENT. PATIENT PRESENT WITH NO PAIN OR DISCOMFORT AT THIS TIME. SAFETY PRECAUTIONS IMPLEMENTED WITH BED LOCKED, BED IN THE LOWEST POSITION, BILATERAL SIDE RAILS UP, BED ALARM ON AND CALL LIGHT WITHIN EASY REACH OF THE PATIENT. WILL CONTINUE TO MONITOR PATIENT.
--- NOTE | 2019-10-05 07:34 | NUR ---
MS/RN CLOSING NOTES: PATIENT REMAINS A/OX4, NO SIGNIFICANT CHANGES IN CONDITION, NO SOB NOTED. BREATHING EVEN AND UNLABORED. ON 2L OXYGEN. SATURATING AT 95%. ON TELE WITH NSR 90S. NO S/S OF DISTRESS. IV ON THE RIGHT WRIST #22G IVF RUNNING AT 75MLS/HR. PT ORIENTED TO UNIT AND STAFF. SAFETY MEASURES KEPT IN PLACE. BED IN LOW, LOCKED POSITION. SR UP X2. CALL LIGHT WITHIN REACH. ALL DUE MEDS GIVEN ORDERED. ALL NURSING NEEDS MET AND RENDERED. ENDORSED TO MINAL CHIANG FOR MASON. Addendum: 10/05/19 at 0737 by KOKO GUTIERREZ RN TELE/RN CLOSING NOTES: PATIENT REMAINS A/OX4, NO SIGNIFICANT CHANGES IN CONDITION, NO SOB NOTED. BREATHING EVEN AND UNLABORED. ON 2L OXYGEN. SATURATING AT 95%. ON TELE WITH NSR 90S. NO S/S OF DISTRESS. IV ON THE RIGHT WRIST #22G IVF RUNNING AT 75MLS/HR. PT ORIENTED TO UNIT AND STAFF. SAFETY MEASURES KEPT IN PLACE. BED IN LOW, LOCKED POSITION. SR UP X2. CALL LIGHT WITHIN REACH. ALL DUE MEDS GIVEN ORDERED. ALL NURSING NEEDS MET AND RENDERED. ENDORSED TO MINAL PRASAD MASON.
--- NOTE | 2019-10-05 07:37 | NUR ---
TELE/RN CLOSING NOTES: PATIENT REMAINS A/OX4, NO SIGNIFICANT CHANGES IN CONDITION, NO SOB NOTED. BREATHING EVEN AND UNLABORED. ON 2L OXYGEN. SATURATING AT 95%. ON TELE WITH NSR 90S. NO S/S OF DISTRESS. IV ON THE RIGHT WRIST #22G IVF RUNNING AT 75MLS/HR. PT ORIENTED TO UNIT AND STAFF. SAFETY MEASURES KEPT IN PLACE. BED IN LOW, LOCKED POSITION. SR UP X2. CALL LIGHT WITHIN REACH. ALL DUE MEDS GIVEN ORDERED. ALL NURSING NEEDS MET AND RENDERED. ENDORSED TO MINAL CHIANG FOR MASON.
[2019-10-05 08:00] VITALS: BP 166/100
[2019-10-05] MEDS: NICOTINE PATCH (14MG) 14 MG PATCH.TD24 TD SCH (08:26)
[2019-10-05] MEDS: ASPIRIN 81 MG TAB.CHEW PO SCH (08:27)
[2019-10-05] MEDS: PANTOPRAZOLE 40 MG TABLET.DR PO SCH (08:30)
--- NOTE | 2019-10-05 10:06 | NUR ---
WOUND CARE CONSULT: PT PRESENTS WITH MULTIPLE DRY ABRASIONS AND LEFT HIP SCAR WELL LONG CURLING TOENAILS, PRESENT ON ADMISSION. RECOMMEND DPM CONSULT. DR DEVINE NOTIFIED OF CONSULT REQUEST. WILL SEE PRN. CURRENT PATTIE SCORE IS 19.
--- NOTE | 2019-10-05 15:45 | NUR ---
MS RN NOTES PATIENT IV ACCESS GOT PULLED OUT, CATHETER TIP INTACT AND APPLIED PRESSURE TO SITE. MULTIPLE ATTEMPTS WERE MADE. INFORMED NATALEE HORVATH NP, THAT IV ACCESS WAS UNSUCCESSFUL, ORDER MIDLINE INSERTION AND TO CONTINUE IV HYDRATION. WILL CARRY OUT ORDERS AND CONTINUE TO MONITOR PATIENT.
[2019-10-05 16:00] VITALS: BP 148/95
--- NOTE | 2019-10-05 16:09 | NUR ---
11:00am Manager Of Product met with the patient at bedside for homelessness consult. Patient is alert and orientated x4 . Patient is a 79-year-old Male. Patient was receptive to speaking with this oncology social work. Patient confirmed date of and social security number on the face sheet. Prior to admission, patient reported that he was in a treatment program for alcohol use but patient states he cannot remember the name of the program. Patient is currently homeless. Patient reports receiving approximately $940 in SSI. Patient currently uses a walker for ambulation stating especially on the bus. Patient reports that he began to consume alcohol at the age of 20. Patient reports that he currently consumes pint of vodka every day. 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 Patient currently reports smoking 2-3 buds of cigarette a day. Patient reports no history of mental illness. Patient denies visual and auditory hallucinations. Patient denies suicidal and homicidal ideations. Patient would like to discharge in the care of his ex- Aliya. Patient reported that he lost his cellphone and does not have a mode to contact Aliya. Patient informed this SW that patient has been hospitalized at this hospital in the past, and asked this SW if SW could find his ex-wifes contact number in his previous charts. Patient reports that he knows where she lives but would like to speak with her first. Patient requested information on marriage counseling in the hopes to reconcile with his ex- Aliya. This SW discussed patients need for treatment and community resources. Patient was receptive and would like resources for alcohol treatment. This SW will also provide homelessness resource packet. SW to remain available to the patient, as needed.
--- NOTE | 2019-10-05 16:11 | NUR ---
11:30am Branch Manager Trainee provided the following homeless community resources to this patient. Substance Abuse resources provided included: [facility] Substance Abuse Self-Helpline ([facility]) ; CRI -HELP [id number] [facility] [id number] ; [place] [facility] [place] [address] [facility] [id number] ; [facility] [address] [facility] [id number] ; [facility] [address] [facility] [address] ; [facility] [address] [facility] [id number] ; [facility] [address] [facility] [phone] ; [facility] Substance Abuse Helpline([facility])-[facility] ; [facility] Family Counseling ; [facility] [place]; [facility] [place]; [facility] [place]; [facility] [place]; [facility] D[facility]; [facility] [place]; [facility] [place]; Alcoholics Anonymous -SFV; Mq-Ybux-Nxidlkh ; Marijuana Anonymous -[facility]; Narcotics Anonymous www.na.org. Year Round Shelters: [facility] [place] [address] [place] [place] [address] ; [facility] [place] [address] [place] [address]; [facility] [id number] [facility]. [facility] [address] Hygiene: [facility]: [address]. [place] ; [facility] [address] [address] ; [facility] [address] . Food Resources: [place] [facility] at [facility]- [address] [facility]. [place]; Meet Each Need with Dignity ([facility]) [address] [address] [facility]; [facility] [address] [facility]; [facility] [address] [facility]. Marriage and Family: [facility], [address] [place], [place], [facility], [address] [place], [place], [facility], [address], [place]
--- NOTE | 2019-10-05 16:11 | NUR ---
11:45am Food Service Representative was unable to locate a phone number for patients ex- Aliya. This SW to inform patient and ask if there is anyone else, we may contact for discharge planning
--- NOTE | 2019-10-05 16:12 | NUR ---
1:45 pm Data Analyst Report Writer spoke to the patient regarding primary contact information. SW was unsuccessful to receive a number from the patient. This SW was able to confirm ex-wifes address with the patient as [address] [place]. Patient did confirm once again he knows how to get to this home.
[2019-10-05] MEDS: VITAMINS A AND D 56.7 GM TUBE TP SCH (18:29)
--- NOTE | 2019-10-05 18:35 | NUR ---
MS RN NOTES PATIENT IN BED RESTING COMFORTABLY. ALERT AND ORIENTED X 4. PATIENT CURRENTLY ON ROOM AIR, NASAL CANNULA AT BEDSIDE, DUE TO PATIENT TAKING IT OFF. NO SIGNS OF RESPIRATORY DISTRESS AT THIS TIME, WITH EVEN NON-LABORED BREATHING, AND NO SOB NOTED. PATIENT HAS IV ACCESS ON LEFT AC, 22 GAUGE, DUE TO PATIENT REQUESTING AND INSISTING ON ATIVAN PRN. NURSING GOLDSMITH APPRENTICE MADE AWARE OF MIDLINE INSERTION, AWAITING FOR MIDLINE. PATIENT PRESENTS WITH NO PAIN OR DISCOMFORT AT THIS TIME. MET ALL OF PATIENT NEEDS. SAFETY PRECAUTIONS IN PLACE WITH BED LOCKED, BED IN THE LOWEST POSITION, BILATERAL SIDE RAILS UP, AND CALL LIGHT WITHIN EASY REACH OF THE PATIENT. WILL ENDORSE PLAN OF CARE TO UPCOMING NURSE.
[2019-10-05 20:00] VITALS: BP 146/89
--- NOTE | 2019-10-05 20:33 | NUR ---
/TERRENCE/RN AT INITIAL ROUNDING AT 1930, PATIENT WAS LYING ON BED AWAKE, ALERT, ORIENTED, VERBALIZED THAT HE FEELS SO MUCH BETTER, NO C/O PAIN, NO DISTRESS NOTED, CALL LIGHT IN REACH.WITHIN REACH, WILL MONITOR. Addendum: 10/05/19 at 2041 by KATY GO RN PLEASE DISREGARD ABOVE DOCUMENTATION, IT WAS CHARTED FOR A DIFFERENT PATIENT.
--- NOTE | 2019-10-05 20:42 | NUR ---
MS/TELE/RN ON INITIAL ROUNDING AT 1930, RECEIVED PATIENT AWAKE, ALERT, ORIENTED, CALM AND COMFORTABLE, NO C/O PAIN, NO DISTRESS NOTED, CALL LIGHT IN REACH. FALL PRECAUTIONS PER PROTOCOL, ENCOURAGED TO USE CALL LIGHT FOR ANY ASSISTANCE, VERBALIZED UNDERSTANDING, CALL LIGHT IN REACH. WILL MONITOR.
--- NOTE | 2019-10-05 23:29 | NUR ---
MS/TELE/RN RESTLESS DUE TO UNABLE TO SLEEP, REQUESTED MEDICATION TO MAKE HIM SLEEP, ATIVAN 1 MG IVP WAS GIVEN ORDERED. WILL MONITOR.
[2019-10-06 03:04] LABS: BASOPHILS # (AUTO) 0.1 /CMM (0.0-0.2); BASOPHILS % (AUTO) 1.1 % (0.0-2.0); EOSINOPHILS % (AUTO) 3.9 % (0.0-6.0); HEMATOCRIT 40 % (39-51); HEMOGLOBIN 13.5 g/dL (13.5-17.5); LYMPHOCYTES # (AUTO) 2.7 /CMM (0.8-4.8); LYMPHOCYTES % (AUTO) 30.6 % (20.0-44.0); MEAN CORPUSCULAR HGB CONC 34 g/dl (31.0-36.0); MEAN CORPUSCULAR VOLUME 98 fL (80-96); MONOCYTES # (AUTO) 0.7 /CMM (0.1-1.30); MONOCYTES % (AUTO) 8.1 % (2.0-12.0); NEUTROPHILS # (AUTO) 4.9 /CMM (1.8-8.9); NEUTROPHILS % (AUTO) 56.3 % (43.0-81.0); PLATELET COUNT (AUTO) 173 /CMM (150-450); RED BLOOD CELL COUNT(AUTO) 4.11 MIL/uL (4.5-6.0); WHITE BLOOD COUNT (AUTO) 8.7 K/uL (4.3-11.0)
[2019-10-06 03:13] LABS: CALCIUM, SERUM 9.2 mg/dL (8.5-10.1); CARBON DIOXIDE 32 mmol/L (21-32); CHLORIDE 98 mmol/L (98-107); CREATININE 0.9 mg/dL (0.6-1.3); GLUCOSE 110 mg/dL (74-106); POTASSIUM 4.1 mmol/L (3.5-5.1); SODIUM SERUM 136 mmol/L (136-145); UREA NITROGEN, BLOOD 21 mg/dL (7-18)
--- NOTE | 2019-10-06 06:33 | NUR ---
MS/TELE/RN PATIENT IS AWAKE AT THIS TIME, CALM AND COMFORTABLE, NO SIGNS OF DISTRESS NOTED, CALL LIGHT IN REACH, ALL NEEDS ATTENDED AT THIS TIME, WILL CONTINUE TO MONITOR.
--- NOTE | 2019-10-06 07:15 | NUR ---
MS RN NOTES PATIENT IN BED ALERT ORIENTED X 4. NO ACUTE DISTRESS NOTED. BREATHING UNLABORED. NO SOB NOTED. DENIED PAIN AT THIS TIME. IV ACCESS PATENT AND INTACT, NO REDNESS, NO SWELLING NOTED. SAFETY MEASURES IN PLACE. CALL LIGHT WITHIN REACH. WILL CONTINUE TO MONITOR ACCORDINGLY.
[2019-10-06] MEDS: PANTOPRAZOLE 40 MG TABLET.DR PO SCH (07:39)
[2019-10-06 08:00] VITALS: BP 131/94
[2019-10-06] MEDS: MULTIVITAMINS,THERAGRAN 1 UDTAB TABLET PO SCH (08:36)
[2019-10-06] MEDS: THIAMINE HCL 100 MG TABLET PO SCH (08:36)
[2019-10-06] MEDS: NICOTINE PATCH (14MG) 14 MG PATCH.TD24 TD SCH (08:36)
[2019-10-06] MEDS: FOLIC ACID 1 MG TABLET PO SCH (08:36)
[2019-10-06] MEDS: ASPIRIN 81 MG TAB.CHEW PO SCH (08:36)
[2019-10-06] MEDS: VITAMINS A AND D 56.7 GM TUBE TP SCH (08:38)
--- NOTE | 2019-10-06 11:15 | NUR ---
Paintings Conservator provided this patient a homeless resources packet containing the resources below. This SW also offered a TAP Card for the patient for transport after discharge. Patient agreed to receiving a TAP Card. This SW notified the patient's nurse about the TAP Card. Substance Abuse resources provided included: [facility] Substance Abuse Self-Helpline ([facility]) ; CRI -HELP [address] [facility]. [place] [id number] ; [facility] [address] [facility] [address] ; [facility] [address] [facility] [id number] ; [facility] [address] [facility] [address] ; [facility] [address] Junior Ahmadi [facility] [id number] ; [facility] 9[address] [facility] [id number] ; [facility] Substance Abuse Helpline([facility])-[facility] ; [facility] ; [facility]; [facility] [place]; [facility] Junior Ahmadi; [place] [facility] [place]; [facility] [place]; [facility] [place]; [facility], [facility]. [place]; Alcoholics Anonymous -SFV; Sv-Rcxy-Splzhvd ; Marijuana Anonymous -[facility]; Narcotics Anonymous www.na.org. Year-Round Shelters: [facility] [address] [place] [address] ; [facility] [address] [place] [address]; [facility] [address] [facility] [address] Hygiene: [facility]: [address] [place] ; [facility] [address] [facility] [address] [facility] n[facility] campus ; [facility] [address] Ahmadi . Food Resources: [place] [facility] at [facility]- [address] [place]; Meet Each Need wit Dignity ([facility]) [address] [facility] [place]; [facility] [address] [facility]; [facility] [address] [facility] [place]. Marriage and Family: [facility], [address] [facility], [place], [place], EPISCOPALIAN [facility]ITIES - [facility], [address] [place], [place], [facility], [address] [facility], [place], [place]
--- NOTE | 2019-10-06 11:42 | NUR ---
MS RN NOTES PATIENT SEEN AND EVALUATED BY R AND D LAB TECHNICIAN NATALEE HORVATH WITH NEW ORDERS MADE, NOTED AND CARRIED OUT.
[2019-10-06] MEDS: LORAZEPAM INJ 2 MG/ML VIAL IV PRN (11:50)
--- NOTE | 2019-10-06 15:00 | NUR ---
MS BLEACH SUPERVISOR NOTES PATIENT DISCHARGE HOME WITH STABLE VITAL SIGNS, ALERT ORIENTED X 4. NO ACUTE DISTRESS NOTED. BREATHING UNLABORED. NO SOB NOTED. DENIED PAIN AT THIS TIME. IV ACCESS REMOVED, NO BLEEDING , NO REDNESS, NO SWELLING NOTED. DISCHARGE INSTRUCTIONS GIVEN TO THE PATIENT INCLUDING FOLLOW UP WITH PRIMARY DOCTOR , VERBALIZED UNDERSTANDING. PATIENT REFUSED PHOTO TAKEN DESPITE OF EXPLANATION OF RISK AND BENEFITS. ALL BELONGINGS ACCOUNTED FOR . ASSISTED TO THE LOBBY, AMBULATORY, PATIENT REFUSED TAP CARD AND SAID " I HAVE MONEY FOR THE BUS ".
== END 2019-10-06 15:03 | disposition home or self-care (01) | DRG 896 ==
LOC: EDBD 09:19 → MERGE 09:19 → ER 09:19 → TELE 22:33 → MED 10-05 10:06
PROVIDERS: ADMIT Nurse Practitioner Acute Care; ATTEND Nurse Practitioner Acute Care
PROC: B546ZZA Ultrasonography of Right Subclavian Vein, Guidance (ICD-10-PCS; principal; 2019-10-05)
PROC: 05H533Z Insertion of Infusion Device into Right Subclavian Vein, Percutaneous Approach (ICD-10-PCS; principal; 2019-10-05)
DX: F10.239 Alcohol dependence with withdrawal, unspecified (principal); N17.0 Acute kidney failure with tubular necrosis; G92 Toxic encephalopathy; E87.1 Hypo-osmolality and hyponatremia; D68.69 Other thrombophilia; F10.229 Alcohol dependence with intoxication, unspecified; Y90.8 Blood alcohol level of 240 mg/100 ml or more; E86.9 Volume depletion, unspecified; F17.210 Nicotine dependence, cigarettes, uncomplicated; I10 Essential (primary) hypertension; L85.3 Xerosis cutis; M20.41 Other hammer toe(s) (acquired), right foot; M20.42 Other hammer toe(s) (acquired), left foot; Z59.0 Homelessness; E11.9 Type 2 diabetes mellitus without complications; J44.9 Chronic obstructive pulmonary disease, unspecified; M79.672 Pain in left foot; M79.671 Pain in right foot; R07.9 Chest pain, unspecified; G31.2 Degeneration of nervous system due to alcohol; I48.91 Unspecified atrial fibrillation
CPT/HCPCS: 36410; 36415; 70450-TC; 71045-TC; 80048-TC; 80053-TC; 80061-TC; 80076-TC; 83735-TC; 84100-TC; 84443-TC; 84484-TC; 85025-TC; 85610-TC; 87081-TC; 93307-TC; C9803-CS; G0378; G0480; J1650; J2060; J2405; J3490